=== PATIENT | female | born 1995 | race Caucasian/White ===

== ENCOUNTER 2016-09-23 16:28 | Emergency (ER) | payer OTHER ==
[~2016-09-23 16:28] MED LIST: NORCO 7.5-3251 EACH PO; VOLTAREN75 MG PO; ZOFRAN ODT4 MG PO
[2016-09-23 16:55] LABS: URINE SOURCE CLEAN CATCH
[2016-09-23 16:58] LABS: URINE APPEARANCE CLOUDY; URINE BILIRUBIN NEG (NEG); URINE BLOOD TRACE-INTACT (NEG); URINE COLOR YELLOW; URINE GLUCOSE NEG (NORM); URINE KETONE NEG (NEG); URINE LEUKOCYTE ESTERASE 2+ (NEG); URINE NITRATE POS (NEG); URINE PROTEIN TRACE (NEG); URINE SPECIFIC GRAVITY 1.015 (1.003-1.035)
[2016-09-23 17:00] LABS: MICRO INDICATED? YES
[2016-09-23 17:09] LABS: CULTURE INDICATED? YES; URINE AMORPHOUS SEDIMENT AMORP PHOSPHATES; URINE BACTERIA 2+ (NEG); URINE SQUAMOUS EPITHELIAL CELL OCCAS /[HPF]
== END 2016-09-23 17:26 | disposition home or self-care (01) ==
LOC: SED 16:28
PROVIDERS: Nurse Practitioner
DX: N39.0 Urinary tract infection, site not specified (principal); Z20.2 Contact with and (suspected) exposure to infections with a predominantly sexual mode of transmission; L02.31 Cutaneous abscess of buttock; F17.200 Nicotine dependence, unspecified, uncomplicated
CPT/HCPCS: 12015; 81003; 84703; 87086; 87186; 99283; J0696